=== PATIENT | female | born 1985 | race Caucasian/White ===

== ENCOUNTER → 2017-09-27 | Outpatient (CLI) | payer OTHER | LOC: FIMAGING 13:47 | PROVIDERS: ATTEND Advanced Practice Midwife | DX: Z36.87 Encounter for antenatal screening for uncertain dates (principal) ==

== ENCOUNTER → 2017-11-21 | Outpatient (CLI) | payer OTHER | LOC: FIMAGING 13:13 | PROVIDERS: ATTEND Advanced Practice Midwife | DX: Z34.82 Encounter for supervision of other normal pregnancy, second trimester (principal); E03.9 Hypothyroidism, unspecified; Z3A.19 19 weeks gestation of pregnancy ==